=== PATIENT | female | born 1960 | race Two or more races ===

== ENCOUNTER 2018-06-14 17:20 | Emergency (ER) | payer MEDICAID ==
[2018-06-14] MEDS: MECLIZINE 12.5 MG TAB PO (18:09)
[2018-06-14] MEDS: ONDANSETRON (ODT) 4 MG TAB ODT (19:58)
== END 2018-06-14 20:14 | disposition home or self-care (01) ==
LOC: E/R 17:20
DX: R42 Dizziness and giddiness (principal); I10 Essential (primary) hypertension; E11.9 Type 2 diabetes mellitus without complications; R11.0 Nausea; Z79.82 Long term (current) use of aspirin
CPT/HCPCS: 82962; 99283